=== PATIENT | female | born 1960 | race Caucasian/White ===

== ENCOUNTER 2017-10-08 01:16 | Inpatient (IN) ==
[2017-10-08] MEDS ORDERED: *HR* HYDROmorphone (PF) 1 MG/ML SYRINGE IVP ONE ×2 (03:44→06:31)
--- NOTE | 2017-10-08 03:46 | Emergency Department Note ---
START Narrative - START START: I examined this patient and my medical decision-making was reviewed with the Resident Physician. I agree with the documented findings, disposition and treatment plan as described except to the extent set forth below. 57 yo F here for right arm pain after a fall. tripped. mechanical fall. + right humerus fx. consult with ortho
[2017-10-08] MEDS ORDERED: Ondansetron 4 MG/2 ML VIAL ONE ×2 (04:10→07:04)
[2017-10-08] MEDS ORDERED: Ondansetron 4 MG/2 ML VIAL IVP PRN ×2 (04:19→08:15)
--- NOTE | 2017-10-08 05:36 | Emergency Department Note ---
Disposition Clinical Impression: Intractable pain Humerus fracture Qualifiers: Encounter type: initial encounter Humerus Location: shaft Fracture type: closed Fracture alignment: displaced Laterality: right Disposition: Admitted As Inpatient Condition: Good Referrals: Beitna Ross MD [Primary Care Provider] - Forms: ED Satisfaction Letter General Adult HPI - General Chief complaint: ED Extremity Injury, Upper Stated complaint: right shoulder injury from fall Time Seen by Provider: 10/08/17 03:05 Source: patient Limitations: no limitations Nursing Notes Reviewed: Yes Vital Signs Reviewed: Yes - History of Present Illness HPI Narrative: 57-year-old female with a mechanical fall just prior to arrival. She fell onto her right shoulder. She is complaining of right arm pain. She states she still has full sensation of her hands. She has difficulty moving her right arm at the level of the shoulder. There is obvious deformity to the right humerus. She did strike her head when she fell but did not lose consciousness. She is not on any blood thinners. She takes no medications currently. She does have COPD and occasionally uses an inhaler. She does admit to using some alcohol prior to arrival. Radiation: non-radiation Pain Severity: severe Pain Scale: 8 Consistency: constant Improves with: nothing Worsens with: movement Associated symptoms: Reports: denies other symptoms Treatments Prior to Arrival: none - Related Data Previous Rx's Medication Instructions Recorded Azithromycin [Azithromycin 6-Tab 250 mg PO PER PKG DI #6 tab 03/12/16 Pack] predniSONE [Prednisone] 60 mg PO DAILY #15 tablet 03/12/16 Allergies Allergy/AdvReac Type Severity Reaction Status Date / Time No Known Allergies Allergy Verified 03/12/16 15:52 All systems ED: reviewed and negative except as stated. Constitutional: Denies: fever Cardiovascular: Denies: chest pain Respiratory: Denies: cough Gastrointestinal: Denies: abdominal pain Musculoskeletal: Denies: back pain Integumentary: Denies: rash Past Medical History - Past Medical History Medical history: Reports: COPD Psychiatric history: Reports: no psych history - Social History Smoking Status: Current every day smoker Alcohol use: Reports: occasionally, recent Drug use: Reports: none Physical Exam - General Limitations: no limitations General appearance: alert - Head Head exam: atraumatic - Eye Eye exam: Present: normal appearance, PERRL - ENT ENT exam: normal exam - Neck Neck exam: Present: normal inspection - Chest Chest inspection: Present: normal inspection - Respiratory Respiratory exam: Present: normal lung sounds bilaterally. Absent: respiratory distress - Cardiovascular Cardiovascular exam: Present: regular rate, normal rhythm - Abdominal Exam Abdominal exam: Present: soft, Non-Tender - Extremities Exam Extremities exam: Present: other (Deformity of right humerus is noted. Neurovascularly intact distally.) - Neurological Exam Neurological exam: Present: alert, oriented X3 - Psychiatric Psychiatric exam: Present: normal affect, normal mood - Skin Skin exam: Present: warm, dry Course Course Narrative: Comminuted humerus fracture is seen. There is tenting of skin. I contacted orthopedics Dr. Zuniga who said that the patient is able to go home if pain is under control and if there is no blanching of the skin. I am unable to get her pain adequately under control and she does live alone and she is concerned that she is unable to take care of herself with her arm the way it is. I will admit her for pain control and orthopedics consultation. Vital Signs Temperature 97.8 F 10/08/17 01:17 Pulse Rate 74 10/08/17 01:17 Respiratory Rate 20 10/08/17 01:17 Blood Pressure 101/70 10/08/17 01:17 O2 Sat by Pulse Oximetry 95 10/08/17 01:17 Temperature 97.8 F 10/08/17 01:17 Pulse Rate 71 10/08/17 05:22 Respiratory Rate 18 10/08/17 05:22 Blood Pressure 90/61 10/08/17 05:22 O2 Sat by Pulse Oximetry 98 10/08/17 05:22 Oxygen Delivery Oxygen Delivery Room Air Medical Decision Making - Radiology Data Radiology results reviewed: Yes I reviewed the patient's radiology results.
[2017-10-08] MEDS ORDERED: Ondansetron 4 MG/2 ML VIAL IVP ONE (06:35)
[2017-10-08] MEDS ORDERED: *HR* HYDROmorphone (PF) 1 MG/ML SYRINGE ONE (07:03)
[2017-10-08 07:21] LABS: BUN/Creatinine Ratio 12 (6-26); Blood Urea Nitrogen 10 mg/dL (7-20); Calcium 8.8 mg/dL (8.6-10.8); Carbon Dioxide 19 mEq/L (19-29); Chloride 86 mEq/L (98-109); Glucose 119 mg/dL (70-99); Osmolality,Calculated 246 (280-300); Potassium 3.9 mEq/L (3.5-4.5); eGFR For African Americans > 60 (> 60); eGFR For Non-African Americans > 60 (> 60)
[2017-10-08 07:23] LABS: Sodium 118 mEq/L (136-145)
[2017-10-08] MEDS ORDERED: 0.9 % Sodium Chloride 1,000 ML IVC SCH (08:15)
[2017-10-08] MEDS ORDERED: *HR* LORazepam 2 MG/ML VIAL IVP PRN ×2 (08:16)
--- NOTE | 2017-10-08 08:39 | Internal Med History&Physical ---
Date of Encounter: 10/08/17 Time of Encounter: 08:36 Assessment and Plan (1) Hyponatremia Current visit: Yes Status: Acute Hypovolemic hyponatremia due to chronic alcoholism. Sodium 118. No neurological symptoms. We will start normal saline 125 miles an hour. Follow sodium Q4 hours. Plan to increase sodium no faster than 10 mEq per 24 hours. (2) COPD (chronic obstructive pulmonary disease) Current visit: Yes Status: Acute Stable no active wheezing. Qualifiers: Qualified Code(s): J44.9 - Chronic obstructive pulmonary disease, unspecified (3) Alcohol withdrawal Current visit: Yes Status: Acute Last drink 12 hours ago. No prior history of significant withdrawal or seizures. We will keep on Ciwa protocol. Qualifiers: Qualified Code(s): F10.239 - Alcohol dependence with withdrawal, unspecified (4) Humerus fracture Current visit: Yes Status: Acute Humerus fracture after mechanical fall. Orthopedic consultation. Patient has intended neurovascular bundle. Radial pulse's present capillary circulation 1SECOND. However hand appears somewhat cyanotic. Will consult orthopedic surgery Qualifiers: Encounter type: initial encounter Humerus Location: shaft Fracture type: closed Fracture alignment: displaced Laterality: right Qualified Code(s): S42.321A - Displaced transverse fracture of shaft of humerus, right arm, initial encounter for closed fracture Internal Medicine - H&P: HPI Chief complaint: FALL History of present illness: Ms. Ward is a 57 year old female with history of COPD on nighttime oxygen chronic alcoholism presents to the emergency room today after a fall. Around midnight while patient was at a [employer] party she tripped and fell on her face. She denies loss of consciousness. She has been having pain and deformity of the right arm. She has been drinking alcohol approximately 10 drinks every day. She denies any recent febrile illness or focal weakness. No seizures. He was found to have a right humeral fracture. She denies any numbness pain coldness in the right hand. Last alcohol drink was 12 hours ago around midnight. Past Med Surg Social Fam HX - Past Medical History Medical history: COPD Psychiatric history: no psych history - Social History Smoking Status: Former smoker Alcohol use: occasionally, recent Drug use: none Internal Medicine - H&P: Meds Azithromycin [Azithromycin 6-Tab Pack] 250 mg PO PER PKG DI #6 tab 03/12/16 [Rx] predniSONE [Prednisone] 60 mg PO DAILY #15 tablet 03/12/16 [Rx] 3 Allergy/AdvReac Type Severity Reaction Status Date / Time No Known Allergies Allergy Verified 03/12/16 15:52 All Systems PM: A 10-system review of systems was performed and is negative for pertinent findings except as documented above in the HPI. Review of systems: 10 point review of systems is negative except for HPI - Constitutional Vitals: Temp Pulse Resp BP Pulse Ox 97.8 F 71 18 106/57 94 10/08/17 01:17 10/08/17 05:38 10/08/17 07:19 10/08/17 07:19 10/08/17 05:38 Exam: Gen.: patient is alert oriented times 3 cardiac: normal S1 S2 no additional sounds or murmurs chest: no active wheezing or bronchial breathing abdomen soft nontender nondistended normal bowel sounds lower extremity no swelling. Neuro: no new focal deficits Right arm: deformity. Radial pulse intact. Sensations intact. Capillary circulation 1 second Internal Med - H&P Results - Labs CBC & Chem 7: 10/08/17 06:56
[2017-10-08 08:42] LABS: Basophils # 0.1 K/mcL (0.0-0.2); Basophils % 0.4 %; Eosinophils % 0.1 %; Hemoglobin 11.9 g/dL (11.5-15.4); Immature Granulocytes % 0.6 % (0-4); Lymphocytes # 1.9 K/mcL (0.6-4.6); Lymphocytes % 11.2 %; Mean Corpuscular Hemoglobin 31.2 pg (28.0-33.3); Mean Corpuscular Volume 89.2 fL (83.0-100.0); Mean Platelet Volume 9.4 fL (9.4-12.4); Monocytes # 0.8 K/mcL (0.0-1.3); Monocytes % 4.7 %; Neutrophils # 13.9 K/mcL (1.6-8.9); Platelet Count 251 K/mcL (140-400); Red Blood Count 3.81 M/mcL (3.82-4.97); Red Cell Distribution Width 12.2 % (11.5-14.5)
[2017-10-08] MEDS: *HR* Morphine 2 MG/ML SYRINGE IVP PRN ×4 (09:16→21:20)
[2017-10-08 10:05] LABS: Basophils # 0.1 K/mcL (0.0-0.2); Basophils % 0.4 %; Eosinophils % 0.1 %; Hematocrit 32.3 % (35.3-44.9); Hemoglobin 11.6 g/dL (11.5-15.4); Immature Granulocytes % 0.6 % (0-4); Lymphocytes # 1.5 K/mcL (0.6-4.6); Lymphocytes % 9.7 %; Mean Corpuscular HGB Conc 35.9 g/dL (31.6-35.5); Mean Corpuscular Hemoglobin 30.9 pg (28.0-33.3); Mean Corpuscular Volume 86.1 fL (83.0-100.0); Mean Platelet Volume 10.2 fL (9.4-12.4); Monocytes # 0.8 K/mcL (0.0-1.3); Neutrophils # 13.1 K/mcL (1.6-8.9); Platelet Count 224 K/mcL (140-400); Red Blood Count 3.75 M/mcL (3.82-4.97); Segmented Neutrophils % 84.2 %
--- NOTE | 2017-10-08 11:46 | Orthopedic Consult Note ---
Date of Encounter: 10/08/17 Time of Encounter: 11:45 Assessment and Plan (1) Humerus fracture Current Visit: Yes Status: Acute I had a discussion with the patient regarding the treatment options for her fracture, both operative and nonoperative. We will try to treat this fracture nonoperatively. I placed her in a sling for the right upper extremity. She should do no lifting or weightbearing through the upper extremity. She may come out of the sling for range of motion at the elbow wrist and hand only. Consistent ice to the right upper arm as well. Qualifiers: Encounter type: initial encounter Humerus Location: shaft Fracture type: closed Fracture alignment: displaced Laterality: right Qualified Code(s): S42.321A - Displaced transverse fracture of shaft of humerus, right arm, initial encounter for closed fracture History of Present Illness HPI: Ms. Ward is a 57 year old female who sustained a fall onto her right side this morning. She denies any passing out or blacking out prior to the fall. She has pain over the right arm and proximal humerus. Denies any numbness or tingling distally. X-rays showed a humeral shaft fracture with extension to the proximal humerus. She was admitted for intractable pain of the right arm. Past Med Surg Social Fam HX - Past Medical History Medical history: COPD Psychiatric history: no psych history - Social History Smoking Status: Former smoker Alcohol use: occasionally, recent Drug use: none Medications and Allergies Azithromycin [Azithromycin 6-Tab Pack] 250 mg PO PER PKG DI #6 tab 03/12/16 [Rx] predniSONE [Prednisone] 60 mg PO DAILY #15 tablet 03/12/16 [Rx] 3 Allergy/AdvReac Type Severity Reaction Status Date / Time No Known Allergies Allergy Verified 03/12/16 15:52 All Systems Reviewed: A 10-system review of systems was performed and is negative for pertinent findings except as documented above in the HPI. Physical Exam - Constitutional Vitals: Temp Pulse Resp BP Pulse Ox 98.4 F 69 15 123/67 96 10/08/17 11:03 10/08/17 11:03 10/08/17 11:03 10/08/17 11:03 10/08/17 11:03 Exam: Consult Exam: Constitutional -Vitals reviewed -The patient is well developed and well nourished. -Mood is pleasant. -The patient is well groomed. Psychiatric -The patient is fully alert and oriented x 3. Respiratory: -Respiratory effort normal Abdomen: -Soft abdomen -Non tender -Non distended: Left upper extremity: -No deformities. The overlying skin is intact. No obvious signs of acute trauma. -No tenderness to palpation throughout. -No significant pain with passive motion of the shoulder, elbow, wrist, and fingers within the limits of the bed. -Able to make an "OK" sign, cross the index and long fingers, and extend the thumb. -Sensation grossly intact to light touch throughout the median, radial, and ulnar distributions. -Radial pulse is present; Fingers have good capillary refill. Right upper extremity: -Tender to palpation over the right upper arm. Significant ecchymosis with likely hematoma formation over the arm. -Compartment soft and compressible -No significant pain with passive motion of the elbow, wrist, and fingers within the limits of the bed. -Able to make an "OK" sign, cross the index and long fingers, and extend the thumb. -Sensation grossly intact to light touch throughout the median, radial, and ulnar distributions. -Radial pulse is present; Fingers have good capillary refill. Left lower extremity: -No deformities. The overlying skin is intact. No obvious signs of acute trauma. -No tenderness to palpation throughout. -No pain with passive motion of the hip, knee, ankle, and toes within the limits of the bed. -No pain with axial loading of the thigh. -Able to dorsiflex and plantarflex the ankle and toes. -Sensation is grossly intact to light touch throughout the sural, saphenous, superficial peroneal, and deep peroneal distributions. -Toes have good capillary refill. Right lower extremity: -No deformities. The overlying skin is intact. No obvious signs of acute trauma. -No tenderness to palpation throughout. -No pain with passive motion of the hip, knee, ankle, and toes within the limits of the bed. -No pain with axial loading of the thigh. -Able to dorsiflex and plantarflex the ankle and toes. -Sensation is grossly intact to light touch throughout the sural, saphenous, superficial peroneal, and deep peroneal distributions. -Toes have good capillary refill. Results - Labs Result Diagrams: 10/08/17 09:35 10/08/17 06:56 Labs: Abnormal lab results WBC 15.5 K/mcL (4.3-11.1) H 10/08/17 09:35 RBC 3.75 M/mcL (3.82-4.97) L 10/08/17 09:35 Hct 32.3 % (35.3-44.9) L 10/08/17 09:35 MCHC 35.9 g/dL (31.6-35.5) H 10/08/17 09:35 Neutrophils # 13.1 K/mcL (1.6-8.9) H 10/08/17 09:35 Sodium 118 mEq/L (136-145) L* 10/08/17 06:56 Chloride 86 mEq/L (98-109) L 10/08/17 06:56 Glucose 119 mg/dL (70-99) H 10/08/17 06:56 Calculated Osmolality 246 (280-300) L 10/08/17 06:56 Ethyl Alcohol 183 mg/dL (0-10) H 10/08/17 06:56 H & H 10/08/17 Range/Units 09:35 Hgb 11.6 (11.5-15.4) g/dL Hct 32.3 L (35.3-44.9) % All other labs normal. - Diagnostic results Shoulder x-ray: image reviewed (Long spiral fracture of the diaphysis of the humerus extending proximally with a butterfly fragment) Consult Discharge Plan - Plan Referrals: Betina Ross MD [Primary Care Provider] -
[2017-10-08] MEDS: 0.9 % Sodium Chloride 1,000 ML IVC SCH ×2 (17:22→23:10)
[2017-10-08] MEDS: Ipratropium/Albuterol Neb 3 ML IH PRN (21:40)
[2017-10-09] MEDS: *HR* Morphine 2 MG/ML SYRINGE IVP PRN ×6 (01:20→20:44)
[2017-10-09 03:41] LABS: Basophils % 0.4 %; Eosinophils % 0.3 %; Hematocrit 28.7 % (35.3-44.9); Immature Granulocytes % 0.4 % (0-4); Lymphocytes # 1.2 K/mcL (0.6-4.6); Lymphocytes % 16.2 %; Mean Corpuscular HGB Conc 34.8 g/dL (31.6-35.5); Mean Corpuscular Hemoglobin 30.8 pg (28.0-33.3); Mean Corpuscular Volume 88.3 fL (83.0-100.0); Mean Platelet Volume 9.4 fL (9.4-12.4); Monocytes # 0.6 K/mcL (0.0-1.3); Monocytes % 8.9 %; Neutrophils # 5.2 K/mcL (1.6-8.9); Platelet Count 177 K/mcL (140-400); Red Blood Count 3.25 M/mcL (3.82-4.97); Red Cell Distribution Width 12.1 % (11.5-14.5); Segmented Neutrophils % 73.8 %
[2017-10-09 03:53] LABS: BUN/Creatinine Ratio 14 (6-26); Blood Urea Nitrogen 8 mg/dL (7-20); Calcium 8.7 mg/dL (8.6-10.8); Carbon Dioxide 24 mEq/L (19-29); Chloride 95 mEq/L (98-109); Glucose 83 mg/dL (70-99); Magnesium 1.7 mg/dL (1.6-2.6); Osmolality,Calculated 267 (280-300); Potassium 3.9 mEq/L (3.5-4.5); Sodium 130 mEq/L (136-145); eGFR For African Americans > 60 (> 60); eGFR For Non-African Americans > 60 (> 60)
[2017-10-09] MEDS: 0.9 % Sodium Chloride 1,000 ML IVC SCH ×2 (06:43→12:11)
--- NOTE | 2017-10-09 09:04 | Orthopedics Progress Note ---
Date of Encounter: 10/09/17 Time of Encounter: 08:56 - Assessment and Plan (1) Humerus fracture Current Visit: Yes Status: Acute Qualifiers: Encounter type: initial encounter Humerus Location: shaft Fracture type: closed Fracture alignment: displaced Laterality: right Qualified Code(s): S42.321A - Displaced transverse fracture of shaft of humerus, right arm, initial encounter for closed fracture Subjective Interval history: S: R arm pain. Stable. No new ortho complaints. No N/T. O: AFVSS GEN: NAD, AAOx3 RUE: Ecchymosis, swelling over right humerus DNVI m/r/u/ax +AIN/PIN/U A/P 57 yo F with R humeral shaft fx -No plans for surgical intervention at this time -Pt to be fitted for a humeral fracture brace today -No lifting with R arm -Ok for ROM at hand, wrist, and elbow Objective Vital signs: Vital Signs Temp Pulse Resp BP Pulse Ox 10/09/17 06:36 98.1 F 78 16 123/70 93 10/09/17 04:01 98.0 F 79 17 121/67 95 10/08/17 23:24 97.9 F 85 17 131/69 94 10/08/17 21:40 16 96 10/08/17 19:50 97.8 F 88 18 138/69 94 10/08/17 16:40 98.1 F 86 15 146/82 93 10/08/17 11:03 98.4 F 69 15 123/67 96 Intake and Output 10/08/17 10/09/17 10/09/17 23:59 07:59 15:59 Intake Total 1999 1000 / 1000 Output Total 800 / 800 1200 / 1200 Balance 1200 / 1200 -200 / -200 Intake: IV Fluids 1999 1000 / 1000 0.9 % Sodium Chloride 1,000 ML 1999 / 1999 1000 / 1000 @ 175 mls/hr IVC .[id number] LADI Rx #:[id number] Output: Urine 800 / 800 1200 / 1200 Other: # Voids 1 # Bowel Movements 0 - Labs CBC & BMP: 10/09/17 03:24 10/09/17 03:24 Labs: Abnormal lab results RBC 3.25 M/mcL (3.82-4.97) L 10/09/17 03:24 Hgb 10.0 g/dL (11.5-15.4) L D 10/09/17 03:24 Hct 28.7 % (35.3-44.9) L 10/09/17 03:24 Sodium 130 mEq/L (136-145) L 10/09/17 03:24 Chloride 95 mEq/L (98-109) L 10/09/17 03:24 Calculated Osmolality 267 (280-300) L 10/09/17 03:24 Ethyl Alcohol 183 mg/dL (0-10) H 10/08/17 06:56 Consult Discharge Plan - Plan Referrals: Betina Ross MD [Primary Care Provider] -
[2017-10-09] MEDS ORDERED: Albuterol 2.5 MG/3 ML NEBULIZER IH PRN (14:03)
[2017-10-09] MEDS ORDERED: *HR* LORazepam 2 MG/ML VIAL IVP PRN (14:05)
--- NOTE | 2017-10-09 14:07 | Internal Med Progress Note ---
Date of Encounter: 10/09/17 Time of Encounter: 14:05 - Assessment and plan (1) Hyponatremia Current Visit: Yes Status: Acute Assessment and plan: Severe hyponatremia.. corrected slowly until this morning Na was at 130.. goal of correction 8-10 meq/24hrs seems to be slightly over corrected so will check stat Na level now and adjut IV fluids accordingly, if needed will give D5 water d/c current NS Her Hyponatremia seems to be due to hypovolemia / alcohol dependence and HCTZ use (2) Alcohol dependence Current Visit: Yes Status: Acute Assessment and plan: Last alcohol 24 hrs ago high risk for DT's cont CIWA protocol on Thiamine, Folic acid and MVT Also started on Libirium LADI counseled to quit drinking Qualifiers: Substance use status: with intoxication Qualified Code(s): F10.220 - Alcohol dependence with intoxication, uncomplicated (3) Humerus fracture Current Visit: Yes Status: Acute Assessment and plan: Ortho on board recommend conservative care No plans for surgical intervention at this time Placed on humeral fracture brace today No lifting with R arm PT / OT consulted Qualifiers: Encounter type: initial encounter Humerus Location: shaft Fracture type: closed Fracture alignment: displaced Laterality: right Qualified Code(s): S42.321A - Displaced transverse fracture of shaft of humerus, right arm, initial encounter for closed fracture (4) COPD (chronic obstructive pulmonary disease) Current Visit: Yes Status: Chronic Assessment and plan: stable resumed home INH Qualifiers: Qualified Code(s): J44.9 - Chronic obstructive pulmonary disease, unspecified (5) Alcohol withdrawal Current Visit: Yes Status: Acute Qualifiers: Qualified Code(s): F10.239 - Alcohol dependence with withdrawal, unspecified (6) Hypertension Current Visit: Yes Status: Chronic Assessment and plan: stable resumed home med Lisinopril Qualifiers: Hypertension type: essential hypertension Qualified Code(s): I10 - Essential (primary) hypertension - Subjective Interval history: Ms. Ward is a 57 year old female with history of COPD on nighttime oxygen chronic alcoholism presented to the emergency room after a fall. Around midnight while patient was at a [employer] she tripped and fell on her face. She denies loss of consciousness. She has been having pain and deformity of the right arm. She has been drinking alcohol approximately 10 drinks every day. She was admitted in the hospital for hyponatremia and Rt humerus fracture. Pt stated her pain is tolerable with current medication. Denied any CP / SOB. She is alert, awake and O x 3. Does not look confused. - Constitutional Vitals: Temp Pulse Resp BP Pulse Ox 98.5 F 75 16 131/68 94 10/09/17 11:34 10/09/17 11:34 10/09/17 11:34 10/09/17 11:34 10/09/17 11:34 General appearance: Present: A&O X 3, no acute distress, answers questions appropriately - Head Head exam: Present: atraumatic, normal inspection - Neck Neck exam general surgery: Present: normal inspection, supple - Respiratory Respiratory exam: Present: decreased breath sounds, wheezes (mild). Absent: rales, respiratory distress, rhonchi - Cardiovascular Cardiovascular exam: Present: RRR, +S1, +S2. Absent: systolic murmur - GI/Abdominal GI/Abdominal exam: Present: normal bowel sounds, soft. Absent: rebound, rigid, tenderness - Extremities Exam Extremities exam: Present: tenderness (Rt shouleder). Absent: calf tenderness Additional comments: limited ROM in Rt shoulder due to pain.. Brace placed on Rt shoulder Internal Medicine: Result - Labs CBC & Chem 7: 10/09/17 03:24 10/09/17 03:24 Labs: Short CBC 10/09/17 Range/Units 03:24 WBC 7.1 D (4.3-11.1) K/mcL Hgb 10.0 L D (11.5-15.4) g/dL Hct 28.7 L (35.3-44.9) % Plt Count 177 (140-400) K/mcL Neutrophils # 5.2 (1.6-8.9) K/mcL BMP 10/08/17 10/08/17 10/08/17 14:48 18:42 20:43 Sodium 119 L* 120 L* 120 L* Potassium Chloride Carbon Dioxide BUN Creatinine Glucose Calcium 10/09/17 10/09/17 00:46 03:24 Sodium 125 L 130 L Potassium 3.9 Chloride 95 L Carbon Dioxide 24 BUN 8 Creatinine 0.59 Glucose 83 Calcium 8.7 Consult Discharge Plan - Plan Referrals: Betina Ross MD [Primary Care Provider] -
[2017-10-09 14:17] LABS: BUN/Creatinine Ratio 12 (6-26); Blood Urea Nitrogen 7 mg/dL (7-20); Calcium 8.8 mg/dL (8.6-10.8); Carbon Dioxide 30 mEq/L (19-29); Chloride 96 mEq/L (98-109); Glucose 140 mg/dL (70-99); Magnesium 1.8 mg/dL (1.6-2.6); Osmolality,Calculated 272 (280-300); Potassium 3.7 mEq/L (3.5-4.5); Sodium 131 mEq/L (136-145); eGFR For African Americans > 60 (> 60); eGFR For Non-African Americans > 60 (> 60)
[2017-10-09] MEDS: Budesonide/Formoterol 160/4.5 MDI IH SCH ×2 (15:25→20:41)
[2017-10-09] MEDS: Multivit/Ca/Min/Fe/FA 1 TAB TABLET PO SCH (18:50)
[2017-10-09] MEDS: Folic Acid 1 MG TABLET PO SCH (18:50)
[2017-10-09] MEDS: Thiamine (B-1) 100 MG TABLET PO SCH (18:51)
[2017-10-09] MEDS: Ipratropium/Albuterol Neb 3 ML IH PRN (20:41)
[2017-10-10] MEDS: *HR* Morphine 2 MG/ML SYRINGE IVP PRN ×5 (03:26→23:23)
[2017-10-10 06:31] LABS: Basophils % 0.4 %; Eosinophils # 0.1 K/mcL (0.0-0.6); Eosinophils % 1.3 %; Hematocrit 27.2 % (35.3-44.9); Hemoglobin 9.5 g/dL (11.5-15.4); Immature Granulocytes % 0.4 % (0-4); Lymphocytes # 1.1 K/mcL (0.6-4.6); Lymphocytes % 16.3 %; Mean Corpuscular HGB Conc 34.9 g/dL (31.6-35.5); Mean Corpuscular Hemoglobin 30.8 pg (28.0-33.3); Mean Corpuscular Volume 88.3 fL (83.0-100.0); Mean Platelet Volume 9.5 fL (9.4-12.4); Monocytes # 0.5 K/mcL (0.0-1.3); Monocytes % 7.6 %; Neutrophils # 5.1 K/mcL (1.6-8.9); Platelet Count 162 K/mcL (140-400); Red Blood Count 3.08 M/mcL (3.82-4.97); Red Cell Distribution Width 12.5 % (11.5-14.5)
[2017-10-10 06:37] LABS: Alanine Aminotransferase 31 Units/L (0-55); Albumin 2.9 g/dL (3.5-5.0); Albumin/Globulin Ratio 0.8 (1.1-2.2); Alkaline Phosphatase 50 Units/L (38-126); Aspartate Amino Transferase 35 Units/L (5-34); BUN/Creatinine Ratio 10 (6-26); Bilirubin,Total 0.6 mg/dL (0.2-1.2); Carbon Dioxide 28 mEq/L (19-29); Chloride 96 mEq/L (98-109); Globulin 3.6 g/dL (2.4-3.5); Glucose 95 mg/dL (70-99); Osmolality,Calculated 273 (280-300); Potassium 3.3 mEq/L (3.5-4.5); Sodium 133 mEq/L (136-145); Total Protein 6.5 g/dL (6.0-8.3); eGFR For African Americans > 60 (> 60); eGFR For Non-African Americans > 60 (> 60)
[2017-10-10 06:38] LABS: Blood Urea Nitrogen 5 mg/dL (7-20)
[2017-10-10] MEDS: Lisinopril 20 MG TABLET PO SCH (07:48)
[2017-10-10] MEDS: Multivit/Ca/Min/Fe/FA 1 TAB TABLET PO SCH (08:41)
[2017-10-10] MEDS: Folic Acid 1 MG TABLET PO SCH (08:41)
[2017-10-10] MEDS: Thiamine (B-1) 100 MG TABLET PO SCH (08:41)
--- NOTE | 2017-10-10 09:30 | Orthopedics Progress Note ---
Date of Encounter: 10/10/17 Time of Encounter: 09:28 - Assessment and Plan (1) Humerus fracture Current Visit: Yes Status: Acute Qualifiers: Encounter type: initial encounter Humerus Location: shaft Fracture type: closed Fracture alignment: displaced Laterality: right Qualified Code(s): S42.321A - Displaced transverse fracture of shaft of humerus, right arm, initial encounter for closed fracture Subjective Interval history: S: R arm pain. Stable. No new ortho complaints. No N/T. O: AFVSS GEN: NAD, AAOx3 RUE: Ecchymosis, swelling over right humerus Brace in place DNVI m/r/u/ax +AIN/PIN/U A/P 57 yo F with R humeral shaft fx -No plans for surgical intervention at this time -No lifting with R arm -Ok for ROM at hand, wrist, and elbow -Follow up in office in 8-10 days. Will sign off Objective Vital signs: Vital Signs Temp Pulse Resp BP Pulse Ox 10/10/17 07:12 98.5 F 79 15 132/72 94 10/10/17 04:12 98.4 F 79 13 131/69 94 10/09/17 23:17 98.8 F 84 17 132/75 96 10/09/17 20:42 16 95 10/09/17 19:30 98.9 F 94 18 135/75 96 10/09/17 15:35 98.8 F 80 18 139/77 93 10/09/17 11:34 98.5 F 75 16 131/68 94 Intake and Output 10/09/17 10/10/17 10/10/17 23:59 07:59 15:59 Intake Total 120 / 120 120 / 120 240 / 240 Output Total 200 / 200 0 / 0 Balance -80 / -80 120 / 120 240 / 240 Intake: Oral 120 / 120 120 / 120 240 / 240 Output: Urine 200 / 200 0 / 0 Other: Meal Dinner Breakfast Percent of Meal Consumed 40% 60% # Voids 1 Weight 58.5 kg Patient Weight 10/10/17 23:59 Weight 58.5 kg - Labs CBC & BMP: 10/10/17 06:11 10/10/17 06:11 Labs: Abnormal lab results RBC 3.08 M/mcL (3.82-4.97) L 10/10/17 06:11 Hgb 9.5 g/dL (11.5-15.4) L 10/10/17 06:11 Hct 27.2 % (35.3-44.9) L 10/10/17 06:11 Sodium 133 mEq/L (136-145) L 10/10/17 06:11 Potassium 3.3 mEq/L (3.5-4.5) L 10/10/17 06:11 Chloride 96 mEq/L (98-109) L 10/10/17 06:11 BUN 5 mg/dL (7-20) L 10/10/17 06:11 Creatinine 0.52 mg/dL (0.57-1.11) L 10/10/17 06:11 Calculated Osmolality 273 (280-300) L 10/10/17 06:11 AST 35 Units/L (5-34) H 10/10/17 06:11 Albumin 2.9 g/dL (3.5-5.0) L 10/10/17 06:11 Globulin 3.6 g/dL (2.4-3.5) H 10/10/17 06:11 Albumin/Globulin Ratio 0.8 (1.1-2.2) L 10/10/17 06:11 Ethyl Alcohol 183 mg/dL (0-10) H 10/08/17 06:56 - VTE Documentation of Mechanical Device: Intermittent pneumatic compression device Consult Discharge Plan - Plan Referrals: Betina Ross MD [Primary Care Provider] -
[2017-10-10] MEDS: Budesonide/Formoterol 160/4.5 MDI IH SCH ×2 (10:57→20:09)
--- NOTE | 2017-10-10 13:44 | Internal Med Progress Note ---
Date of Encounter: 10/10/17 Time of Encounter: 09:00 - Assessment and plan (1) Humerus fracture Current Visit: Yes Status: Acute Assessment and plan: Ortho on board recommend conservative care No plans for surgical intervention at this time Placed on humeral fracture brace today No lifting with R arm PT / OT consulted Qualifiers: Encounter type: initial encounter Humerus Location: shaft Fracture type: closed Fracture alignment: displaced Laterality: right Qualified Code(s): S42.321A - Displaced transverse fracture of shaft of humerus, right arm, initial encounter for closed fracture (2) Hyponatremia Current Visit: Yes Status: Acute Assessment and plan: Na 133 today. Patient tolerated well. Her Hyponatremia seems to be due to hypovolemia / alcohol dependence and HCTZ use (3) COPD (chronic obstructive pulmonary disease) Current Visit: Yes Status: Chronic Assessment and plan: stable resumed home INH Qualifiers: Qualified Code(s): J44.9 - Chronic obstructive pulmonary disease, unspecified (4) Alcohol dependence Current Visit: Yes Status: Acute Assessment and plan: Last alcohol 24 hrs ago high risk for DT's cont CIWA protocol on Thiamine, Folic acid and MVT Also started on Libirium LADI counseled to quit drinking No signs of withdrawal at this point. Qualifiers: Substance use status: with intoxication Qualified Code(s): F10.220 - Alcohol dependence with intoxication, uncomplicated (5) Hypertension Current Visit: Yes Status: Chronic Assessment and plan: stable resumed home med Lisinopril Qualifiers: Hypertension type: essential hypertension Qualified Code(s): I10 - Essential (primary) hypertension (6) DVT prophylaxis Current Visit: Yes Status: Acute Assessment and plan: Heparin subcutaneously - Time Spent With Patient 25 - 35 minutes - Subjective Interval history: Patient was seen and examined. Still complaining of right arm pain, controlled by pain medications. Patient denies nausea vomiting, tremor. Vital signs stable. Orthopedic consult appreciated, no plan for surgery. We will taper down Librium dose, plan for discharge tomorrow. - Constitutional Vitals: Temp Pulse Resp BP Pulse Ox 98.2 F 73 16 118/71 94 10/10/17 11:28 10/10/17 11:28 10/10/17 11:28 10/10/17 11:28 10/10/17 11:28 General appearance: Present: A&O X 3, no acute distress, answers questions appropriately - Head Head exam: Present: atraumatic, normocephalic - Eye Eye exam: Present: PERRL, conjuntiva pink, sclera anicteric Pupils: Present: PERRL - Neck Neck exam general surgery: Present: supple, trachea midline. Absent: lymphadenopathy - Respiratory Respiratory exam: Present: CTAB. Absent: accessory muscle use, rales, rhonchi, wheezes - Cardiovascular Cardiovascular exam: Present: RRR, +S1, +S2. Absent: diastolic murmur, gallop, rubs, systolic murmur - GI/Abdominal GI/Abdominal exam: Present: normal bowel sounds, soft, no peritoneal signs. Absent: distended, tenderness - Extremities Exam Extremities exam: Present: warm, radial pulses palpable and symmetrical. Absent : calf tenderness, cyanotic, pedal edema - Neurological Exam Neurological exam: Present: CN II-XII intact, oriented X3, no focal deficits. Absent: pronater drift, facial droop, speech deficit - Skin Skin exam: Present: dry, intact Internal Medicine: Result - Labs CBC & Chem 7: 10/10/17 06:11 10/10/17 06:11 Labs: Short CBC 10/10/17 Range/Units 06:11 WBC 6.9 (4.3-11.1) K/mcL Hgb 9.5 L (11.5-15.4) g/dL Hct 27.2 L (35.3-44.9) % Plt Count 162 (140-400) K/mcL Neutrophils # 5.1 (1.6-8.9) K/mcL BMP 10/09/17 10/09/17 10/10/17 13:58 18:11 06:11 Sodium 131 L 133 L 133 L Potassium 3.7 3.3 L Chloride 96 L 96 L Carbon Dioxide 30 H 28 BUN 7 5 L Creatinine 0.59 0.52 L Glucose 140 H 95 Calcium 8.8 9.0 Liver Function 10/10/17 Range/Units 06:11 Total Bilirubin 0.6 (0.2-1.2) mg/dL AST 35 H (5-34) Units/L ALT 31 (0-55) Units/L Alkaline Phosphatase 50 (38-126) Units/L Albumin 2.9 L (3.5-5.0) g/dL - Impressions Impressions Humerus X-Ray 10/10/17 09:15 IMPRESSION: Comminuted right humeral diaphysis fracture with some improvement in alignment. D/ / Kaushik Paz MD / Kaushik Paz MD Interpreting Provider: Kaushik Paz MD - VTE Documentation of Mechanical Device: Intermittent pneumatic compression device Consult Discharge Plan - Plan Referrals: Betina Ross MD [Primary Care Provider] -
[2017-10-10] MEDS: *HR* Heparin 5,000 UNIT/ML VIAL SQ SCH (20:29)
[2017-10-11 04:00] LABS: Basophils # 0.1 K/mcL (0.0-0.2); Basophils % 0.8 %; Eosinophils # 0.2 K/mcL (0.0-0.6); Eosinophils % 2.1 %; Hematocrit 26.7 % (35.3-44.9); Hemoglobin 9.1 g/dL (11.5-15.4); Immature Granulocytes % 0.4 % (0-4); Lymphocytes # 1.8 K/mcL (0.6-4.6); Lymphocytes % 23.5 %; Mean Corpuscular HGB Conc 34.1 g/dL (31.6-35.5); Mean Corpuscular Hemoglobin 31.1 pg (28.0-33.3); Mean Corpuscular Volume 91.1 fL (83.0-100.0); Mean Platelet Volume 9.7 fL (9.4-12.4); Monocytes # 0.7 K/mcL (0.0-1.3); Monocytes % 9.1 %; Neutrophils # 4.9 K/mcL (1.6-8.9); Platelet Count 169 K/mcL (140-400); Red Blood Count 2.93 M/mcL (3.82-4.97); Red Cell Distribution Width 12.4 % (11.5-14.5); Segmented Neutrophils % 64.1 %
[2017-10-11 04:13] LABS: BUN/Creatinine Ratio 11 (6-26); Blood Urea Nitrogen 6 mg/dL (7-20); Calcium 8.6 mg/dL (8.6-10.8); Carbon Dioxide 24 mEq/L (19-29); Chloride 98 mEq/L (98-109); Glucose 106 mg/dL (70-99); Osmolality,Calculated 274 (280-300); Potassium 3.6 mEq/L (3.5-4.5); Sodium 133 mEq/L (136-145); eGFR For African Americans > 60 (> 60); eGFR For Non-African Americans > 60 (> 60)
[2017-10-11] MEDS: *HR* Heparin 5,000 UNIT/ML VIAL SQ SCH (05:39)
[2017-10-11] MEDS: *HR* Morphine 2 MG/ML SYRINGE IVP PRN ×3 (05:39→13:23)
[2017-10-11 07:09] VITALS: BP 157/80
[2017-10-11] MEDS: Budesonide/Formoterol 160/4.5 MDI IH SCH (07:56)
[2017-10-11] MEDS: Lisinopril 20 MG TABLET PO SCH (08:56)
[2017-10-11] MEDS: Multivit/Ca/Min/Fe/FA 1 TAB TABLET PO SCH (08:58)
[2017-10-11] MEDS: Thiamine (B-1) 100 MG TABLET PO SCH (08:58)
[2017-10-11] MEDS: Folic Acid 1 MG TABLET PO SCH (08:58)
--- NOTE | 2017-10-11 12:42 | Discharge Summary ---
Date of Encounter: 10/11/17 Time of Encounter: 11:00 - Discharge Diagnosis (1) Humerus fracture Priority: Primary Status: Acute Qualifiers: Encounter type: initial encounter Humerus Location: shaft Fracture type: closed Fracture alignment: displaced Laterality: right Qualified Code(s): S42.321A - Displaced transverse fracture of shaft of humerus, right arm, initial encounter for closed fracture (2) Hyponatremia Priority: Primary Status: Acute (3) COPD (chronic obstructive pulmonary disease) Priority: Secondary Status: Chronic Qualifiers: Qualified Code(s): J44.9 - Chronic obstructive pulmonary disease, unspecified (4) Alcohol dependence Priority: Secondary Status: Acute Qualifiers: Substance use status: with intoxication Qualified Code(s): F10.220 - Alcohol dependence with intoxication, uncomplicated (5) Hypertension Priority: Secondary Status: Chronic Qualifiers: Hypertension type: essential hypertension Qualified Code(s): I10 - Essential (primary) hypertension (6) DVT prophylaxis Priority: Secondary Status: Acute - Discharge Medications Prescriptions: Folic Acid 1 mg PO DAILY #30 tablet Thiamine (B-1) [Vitamin B-1] 100 mg PO DAILY #30 tablet Home Medications: Albuterol Neb [Proventil Neb] 2.5 mg IH Q6H PRN 10/08/17 [History] Albuterol Sulfate [Albuterol Inhaler] 2 puff IH Q4H PRN 10/08/17 [History] Budesonide/Formoterol 160/4.5 [Symbicort 160/4.5] 2 puff IH BID 10/08/17 [ History] Lisinopril/Hydrochlorothiazide [Zestoretic 20-25 mg Tablet] 1 each PO DAILY 01/20 [History] Lovastatin 40 mg PO HS 10/08/17 [History] Montelukast [Singulair] 10 mg PO DAILY 10/08/17 [History] Folic Acid 1 mg PO DAILY #30 tablet 10/11/17 [Rx] Ibuprofen 400 mg PO Q6H PRN #60 tablet 10/11/17 [Rx] Omeprazole 20 mg PO DAILY #14 tablet.dr 10/11/17 [Rx] Thiamine (B-1) [Vitamin B-1] 100 mg PO DAILY #30 tablet 10/11/17 [Rx] Allergies/Adverse Reactions: 3 Allergy/AdvReac Type Severity Reaction Status Date / Time No Known Allergies Allergy Verified 03/12/16 15:52 Date of admission: 10/08/17 08:11 Primary care physician: Betina Ross MD Consults: 10/08/17 08:16 Consult to Range Ecologist [CONS] Routine Reason for SW Consult: chemical dependency 10/09/17 13:53 Consult to Physical Therapy [CONS] Routine Comment: Evaluate, develop and implement POC Reason for Consult: Humerus fracture OT [Consult to Occupational Therapy] [CONS] Routine Comment: Evaluate, develop and implement POC Reason for Consult: Humerus fracture Discharging clinician: Roberth Kemp Anticipated date of discharge: 10/11/17 - Patient Status Disposition: Home, Self-Care Condition: Good Overall status at discharge: patient is progressing back to baseline - Discharge Instructions Follow Up With: Betina Ross MD [Primary Care Provider] - 10/18/17 2:00 pm Baljinder Zuniga MD [Non-Partnered Physician] - 10/23/17 10:30 am - Diet and Activity Activity: increase activity as tolerated Diet: regular diet Hospital course: Ms. Ward is a 57 year old female admitted to fall and right-sided humerus fracture. Patient has history of alcoholism and the fall is due to alcohol intoxication. Patient was placed on CIWA protocol. Orthopedic consult was called, no indication for surgery. Patient was given pain control and physical therapy. After treatment, her condition has improved. We will discharge patient home and follow up with orthopedics as outpatient. I saw and examined the patient today. Patient is awake alert, no signs of withdrawal. Minimal pain controlled by pain medication. Vital signs stable. Will DC patient home today. Will give patient ibuprofen for pain control, at the same time order omeprazole for GI prophylaxis during ibuprofen use. - Time Spent with Patient Total time spent providing and/or coordinating discharge services: 25 min Less than 30 minutes - Constitutional Vitals: Temp Pulse Resp BP Pulse Ox 98 F 72 18 157/80 96 10/11/17 07:04 10/11/17 07:04 10/11/17 07:56 10/11/17 07:04 10/11/17 07:56 General appearance: Present: A&O X 3, no acute distress, answers questions appropriately - Head Head exam: Present: atraumatic, normocephalic - Eye Eye exam: Present: PERRL, conjuntiva pink, sclera anicteric Pupils: Present: PERRL - Neck Neck exam general surgery: Present: supple, trachea midline. Absent: lymphadenopathy - Respiratory Respiratory exam: Present: CTAB. Absent: accessory muscle use, rales, rhonchi, wheezes - Cardiovascular Cardiovascular exam: Present: RRR, +S1, +S2. Absent: diastolic murmur, gallop, rubs, systolic murmur - GI/Abdominal GI/Abdominal exam: Present: normal bowel sounds, soft, no peritoneal signs. Absent: distended, tenderness - Extremities Exam Extremities exam: Present: warm, radial pulses palpable and symmetrical. Absent : calf tenderness, cyanotic, pedal edema Additional comments: Right arm range of movement is limited due to pain - Neurological Exam Neurological exam: Present: CN II-XII intact, oriented X3, no focal deficits. Absent: pronater drift, facial droop, speech deficit - Skin Skin exam: Present: dry, intact - VTE Documentation of Mechanical Device: Intermittent pneumatic compression device
== END 2017-10-11 14:52 | disposition home or self-care (01) | DRG 563 ==
LOC: 3ANU 01:16 → EMEROO 01:16 → 3ANU 07:18
PROVIDERS: ADMIT Pediatrics; ATTEND Family Medicine